=== PATIENT | female | born 1995 | race Caucasian/White ===

== ENCOUNTER → 2018-01-14 | Outpatient (CLI) | payer BC ==
--- NOTE | 2018-01-14 16:45 | KCIC ---
MR of the right knee Indication: Right knee pain. Patellofemoral pain for 8 years. Chronic posterior pain and chronic medial and lateral pain. Technique: The standard multiplanar sequences are obtained. FINDINGS: Artifact: No significant image degradation. Medial meniscus:Intact. Lateral meniscus: Intact. Anterior cruciate ligament: Intact Posterior cruciate ligament: Intact Medial collateral ligament: Intact. Lateral structures: * Iliotibial band: Intact. * Lateral collateral ligament: Intact. * Biceps femoris tendon: Intact * Popliteus tendon attachment: Intact Extensive mechanism: * Patellar tendon: Intact * Quadriceps tendon: Intact * Retinacular structures: Intact Fluid: Trace joint effusion. No significant Oliveros's cyst. Intra-articular bodies: None visualized Joint compartments * patellofemoral joint: Mild lateral patellar tilt and subluxation. Tibial tubercle-trochlear groove distance measures 2.6 cm. * medial compartment:Intact * lateral compartment:Intact Bones: No significant lesion or acute fracture. Soft tissue: Unremarkable Impression: 1. Lateral patellar tilt and subluxation. Tibial tubercle lateralization measures 2.6 cm. 2. No meniscal tear or other internal derangement. Electronically signed by: Deng Pope MD (01/14/2018 4:42 PM) [id number]
== END | disposition home or self-care (01) ==
LOC: KCIC MRI 15:15
PROVIDERS: ATTEND Orthopaedic Surgery
DX: S83.011A Lateral subluxation of right patella, initial encounter (principal); X58.XXXA Exposure to other specified factors, initial encounter; Y93.89 Activity, other specified; Y92.89 Other specified places as the place of occurrence of the external cause; Y99.8 Other external cause status
CPT/HCPCS: 73721